=== PATIENT | female | born 1990 | race African-American/Black ===

== ENCOUNTER 2023-01-15 01:39 | Emergency (ER) | payer BC, OTHER ==
[~2023-01-15] VITALS: Ht 175.3 cm; Wt 106.6 kg
[2023-01-15] MEDS ORDERED: predniSONE 20 MG TABLET ONE (01:54)
[2023-01-15 01:56] VITALS: O2SAT 98
[2023-01-15] MEDS ORDERED: IPRATROPIUM NEB FS 0.5 MG/2.5 ML AMPUL.NEB ONE ×2 (01:56→01:57)
[2023-01-15] MEDS ORDERED: ALBUTEROL FS 2.5 MG/3 ML VIAL.NEB ONE (01:56)
[2023-01-15] MEDS ORDERED: IPRATROPIUM NEB FS 0.5 MG/2.5 ML AMPUL.NEB NEB ONE (02:00)
[2023-01-15] MEDS ORDERED: predniSONE 20 MG TABLET PO ONE (02:00)
[2023-01-15] MEDS ORDERED: ALBUTEROL FS 2.5 MG/3 ML VIAL.NEB NEB ONE (02:00)
[2023-01-15 02:56] VITALS: O2SAT 100
[2023-01-15] MEDS ORDERED: PRED50TA PO (03:31)
[2023-01-15 03:38] VITALS: BP 104/92; TEMP 98.7; O2SAT 97
== END 2023-01-15 03:38 | disposition home or self-care (01) ==
LOC: ER 01:40
DX: J45.901 Unspecified asthma with (acute) exacerbation (principal)
CPT/HCPCS: 99285; 94644; J7512